=== PATIENT | male | born 1960 | race Caucasian/White ===

== ENCOUNTER 2018-11-30 10:13 | Emergency (ER) | payer SELFPAY ==
[2018-11-30 10:57] LABS: #Basophils 0.1 thou/uL (0.0-0.2); #Eosinphils 0.1 thou/uL (0.0-0.7); #Lymphocytes 1.8 thou/uL (1.20-3.40); #Neutrophils 6.8 thou/uL (1.40-6.50); %Basophils 0.7 % (0.0-1.0); %Eosinophils 1.3 % (0.0-10.0); %Lymphocytes 18.6 % (21.0-51.0); %Monocytes 10.6 % (0.0-10.0); %Neutrophils 68.9 % (42.0-75.0); Mean Corpuscular HGB CONC 32.9 g/dL (32.0-36.0); Mean Corpuscular Hemoglobin 28.4 pg (27.0-31.0); Mean Corpuscular Volume 86.3 fL (78.0-98.0); Mean Platelet Volume 6.6 fL (7.4-10.4); Platelet Count 413 thou/uL (130-400); RBC Distribution Width 12.5 % (11.5-14.5); Red Blood Cell (RBC) Count 4.58 mill/uL (4.70-6.10); White Blood Cell (WBC) Count 9.9 thou/uL (4.8-10.8)
[2018-11-30 11:21] LABS: ALT (SGPT) 18 U/L (8-55); AST (SGOT) 15 U/L (5-34); Alkaline Phosphatase 71 U/L (40-150); Anion Gap 13 mmol/L (10-20); BUN (Urea Nitrogen) 18 mg/dL (8.4-25.7); Bilirubin, Total 0.6 mg/dL (0.2-1.2); Calc. Creatinine Clearance 0 mL/min (70-130); Carbon Dioxide 24 mmol/L (22-29); Chloride 104 mmol/L (98-107); Estimated GFR-MDRD 57; Globulin 2.6 g/dL (2.4-3.5); Glucose 103 mg/dL (70-105); Potassium 5.1 mmol/L (3.5-5.1); Protein, Total 6.6 g/dL (6.0-8.3); Sodium 136 mmol/L (136-145)
== END 2018-11-30 11:07 | disposition home or self-care (01) ==
LOC: ERS 10:13
DX: R05 Cough (principal); J43.9 Emphysema, unspecified; F31.9 Bipolar disorder, unspecified; F20.9 Schizophrenia, unspecified
CPT/HCPCS: 36415; 80053; 84484; 85025; 93005

== ENCOUNTER 2020-12-25 11:53 | Outpatient (CLI) | payer BC ==
[2020-12-25 14:15] LABS: #Basophils 0.1 10x3/uL (0.0-0.2); #Eosinphils 0.3 10x3/uL (0.0-0.5); #Monocytes 0.6 10x3/uL (0.0-1.1); %Eosinophils 5.1 % (0.0-6.0); %Lymphocytes 20.2 % (18.0-47.0); %Monocytes 9.4 % (0.0-10.0); %Neutrophils 64.1 % (40.0-75.0); Hemoglobin 14.3 g/dL (13.5-17.5); Mean Corpuscular HGB CONC 31.7 g/dL (32.0-36.0); Mean Corpuscular Hemoglobin 26.8 pg (27.0-33.0); Mean Corpuscular Volume 84.6 fl (81.2-95.1); Mean Platelet Volume 10.2 fl (7.4-10.4); Platelet Count 305 10x3/uL (150-450); RBC Distribution Width 14.7 % (11.5-14.5); Red Blood Cell (RBC) Count 5.33 10x6/uL (4.32-5.72); White Blood Cell (WBC) Count 6.3 10x3/uL (3.5-10.5)
[2020-12-25 14:51] LABS: Anion Gap 15 mmol/L (10-20); BUN (Urea Nitrogen) 15 mg/dL (8.4-25.7); Calc. Creatinine Clearance 0 mL/min (70-130); Calcium 9.4 mg/dL (7.8-10.44); Carbon Dioxide 24 mmol/L (22-29); Chloride 106 mmol/L (98-107); Glucose 63 mg/dL (70-105); Potassium 4.9 mmol/L (3.5-5.1); Sodium 140 mmol/L (136-145)
[2020-12-26 21:36] LABS: SARS-CoV-2 PCR by NAA Not Detected (NotDetected)
== END 2020-12-25 11:54 | disposition home or self-care (01) ==
LOC: LABBT 11:53
PROVIDERS: ATTEND Specialist
DX: Z01.818 Encounter for other preprocedural examination (principal); K40.90 Unilateral inguinal hernia, without obstruction or gangrene, not specified as recurrent; Z20.822 Contact with and (suspected) exposure to COVID-19
CPT/HCPCS: 80048; 85025; 93005; 93010; U0003; U0005

== ENCOUNTER 2020-12-30 06:13 | Day surgery (SDC) | payer BC ==
[2020-12-25 15:19] VITALS: BMI 22.0
[2020-12-30] MEDS ORDERED: Fentanyl 100 MCG/2 ML VIAL ONE (06:40)
[2020-12-30] MEDS ORDERED: Lidocaine 2% Jelly 5 ML TUBE ONE (06:40)
[2020-12-30] MEDS ORDERED: Bupivacaine 0.25% HCL 30 ML VIAL ONE (06:41)
[2020-12-30] MEDS ORDERED: Lidocaine 1% w/Epinephrine 1:100K 30 ML VIAL ONE (06:41)
[2020-12-30] MEDS ORDERED: Ketorolac Tromethamine 30 MG/ML VIAL ONE (06:44)
[2020-12-30] MEDS ORDERED: Acetaminophen 500 MG TAB ONE (06:44)
[2020-12-30] MEDS ORDERED: Midazolam HCl 2 mg/2 ml Vial ONE (07:34)
[2020-12-30] MEDS ORDERED: PHENYLEPHRINE-NS 100 MCG/ML 10 ML SYRINGE ONE (07:47)
[2020-12-30] MEDS ORDERED: Dexamethasone 20 MG/5 ML VIAL ONE (07:47)
[2020-12-30] MEDS ORDERED: Ondansetron PF 4 MG/2 ML Vial ONE (07:47)
[2020-12-30] MEDS ORDERED: Glycopyrrolate 0.2 MG/ML 5 ML SYRINGE ONE (07:47)
[2020-12-30] MEDS ORDERED: Rocuronium Bromide 10 MG/ML (10ML VIAL) ONE (07:47)
[2020-12-30] MEDS ORDERED: PROPOFOL 200 MG/20 ML VIAL ONE (07:47)
[2020-12-30] MEDS ORDERED: Lidocaine 1% PF 5 ML VIAL ONE (07:47)
[2020-12-30] MEDS ORDERED: ePHEDrine 50 MG/ML VIAL ONE (07:47)
[2020-12-30] MEDS ORDERED: HYDROcodone/Acetaminophen 5/325 mg Tablet ONE (10:02)
== END 2020-12-30 11:45 | disposition home or self-care (01) ==
LOC: SDC 06:13
PROVIDERS: ATTEND Specialist
PROC: 0YU64JZ Supplement Left Inguinal Region with Synthetic Substitute, Percutaneous Endoscopic Approach (ICD-10-PCS; principal; 2020-12-30)
DX: K40.90 Unilateral inguinal hernia, without obstruction or gangrene, not specified as recurrent (principal); I12.9 Hypertensive chronic kidney disease with stage 1 through stage 4 chronic kidney disease, or unspecified chronic kidney disease; N18.32 Chronic kidney disease, stage 3b; E03.9 Hypothyroidism, unspecified; F17.200 Nicotine dependence, unspecified, uncomplicated; Z86.73 Personal history of transient ischemic attack (TIA), and cerebral infarction without residual deficits; Z79.899 Other long term (current) drug therapy; Z88.5 Allergy status to narcotic agent
CPT/HCPCS: C1781; J0690; J1100; J1885; J2250; J2405; J2704; J3010; J3490; S0020

== ENCOUNTER 2021-05-25 14:20 | Inpatient (IN) | payer BC ==
[2021-05-25 15:08] LABS: #Basophils 0.1 thou/uL (0.0-0.2); #Eosinphils 0.2 thou/uL (0.0-0.7); #Lymphocytes 1.3 thou/uL (1.20-3.40); #Monocytes 0.6 thou/uL (0.11-0.59); #Neutrophils 4.2 thou/uL (1.40-6.50); %Eosinophils 3.3 % (0.0-10.0); %Lymphocytes 20.7 % (21.0-51.0); %Monocytes 9.7 % (0.0-10.0); %Neutrophils 65.2 % (42.0-75.0); Hemoglobin 14.1 g/dL (14.0-18.0); Mean Corpuscular HGB CONC 31.5 g/dL (32.0-36.0); Mean Corpuscular Hemoglobin 26.9 pg (27.0-31.0); Mean Corpuscular Volume 85.4 fL (78.0-98.0); Mean Platelet Volume 6.6 fL (7.4-10.4); Platelet Count 341 thou/uL (130-400); RBC Distribution Width 13.6 % (11.5-14.5); Red Blood Cell (RBC) Count 5.24 mill/uL (4.70-6.10); White Blood Cell (WBC) Count 6.4 thou/uL (4.8-10.8)
[2021-05-25 15:29] LABS: Acetaminophen Less than 6.0 mcg/mL (10.0-30.0); Alcohol Less than 10 mg/dL (Less than 10); Salicylate Less than 8.0 mg/dL (15.0-30.0)
[2021-05-25 15:30] LABS: ALT (SGPT) 13 U/L (8-55); AST (SGOT) 14 U/L (5-34); Albumin 3.7 g/dL (3.5-5.0); Alkaline Phosphatase 63 U/L (40-110); Anion Gap 13 mmol/L (10-20); BUN (Urea Nitrogen) 16 mg/dL (8.4-25.7); Bilirubin, Total 0.6 mg/dL (0.2-1.2); Calc. Creatinine Clearance 0 mL/min (70-130); Calcium 9.7 mg/dL (7.8-10.44); Carbon Dioxide 27 mmol/L (22-29); Chloride 102 mmol/L (98-107); Glucose 62 mg/dL (70-105); Potassium 4.1 mmol/L (3.5-5.1); Protein, Total 6.7 g/dL (6.0-8.3); Sodium 138 mmol/L (136-145)
[2021-05-25 16:00] LABS: Hemoglobin A1c 5.7 % (4.0-6.0)
[2021-05-25 16:07] LABS: INR-International Normal Ratio 0.9; PTT 32.2 sec (22.9-36.1); Prothrombin Time 12.2 sec (12.0-14.7)
[2021-05-25 16:43] LABS: Bilirubin Negative (Negative); Blood, Urine Negative (Negative); Clarity Clear (Clear); Glucose, Urine (Dipstick) Normal (Negative); Ketone, Urine Negative (Negative); Leukocyte Negative Leu/uL (Negative); Nitrite Negative (Negative); Protein, Urine (Dipstick) Negative (Neg-Trace); Urobilinogen Normal mg/dL (Less than 2)
[2021-05-25 16:54] LABS: Amphetamine Detected (NotDetected); Barbiturates Screen Not Detected (NotDetected); Benzodiazepine Screen Not Detected (NotDetected); Cocaine Metabolite Screen Not Detected (NotDetected); Methadone Not Detected (NotDetected); Methamphetamine Detected (NotDetected); Opiate Screen Not Detected (NotDetected); Oxycodone Screen Not Detected (NotDetected); Phencyclidine (PCP) Not Detected (NotDetected); THC/Cannabinoid Screen Not Detected (NotDetected); Tricyclic Screen Not Detected (NotDetected)
[2021-05-25] MEDS ORDERED: Aspirin 325 MG TAB ONE (18:05)
[2021-05-25 19:04] LABS: Troponin I Less than 0.010 ng/mL (< 0.028)
[2021-05-25 22:35] LABS: Troponin I Less than 0.010 ng/mL (< 0.028)
[2021-05-25 22:56] VITALS: BMI 21.4
[2021-05-25] MEDS ORDERED: Ondansetron ODT 4 MG TAB PO PRN (22:56)
[2021-05-25] MEDS ORDERED: Acetaminophen 325 MG TAB PO PRN (22:56)
[2021-05-25] MEDS ORDERED: hydrALAZINE 20 MG/ML VIAL SLOW IVP PRN (22:56)
[2021-05-25] MEDS ORDERED: Acetaminophen 650 MG Suppository PR PRN (22:56)
[2021-05-25] MEDS ORDERED: Ondansetron PF 4 MG/2 ML Vial IVP PRN (22:56)
[2021-05-26] MEDS: Dextrose 10% in Water 1,000 ML IV SCH ×3 (02:30→22:08)
[2021-05-26 05:08] LABS: #Basophils 0.1 thou/uL (0.0-0.2); #Eosinphils 0.4 thou/uL (0.0-0.7); #Lymphocytes 2.5 thou/uL (1.20-3.40); #Monocytes 0.8 thou/uL (0.11-0.59); #Neutrophils 3.6 thou/uL (1.40-6.50); %Basophils 1.6 % (0.0-1.0); %Lymphocytes 33.7 % (21.0-51.0); %Monocytes 10.3 % (0.0-10.0); %Neutrophils 49.4 % (42.0-75.0); Hemoglobin 14.1 g/dL (14.0-18.0); Mean Corpuscular HGB CONC 32.5 g/dL (32.0-36.0); Mean Corpuscular Hemoglobin 27.7 pg (27.0-31.0); Mean Corpuscular Volume 85.2 fL (78.0-98.0); Mean Platelet Volume 7.2 fL (7.4-10.4); Platelet Count 338 thou/uL (130-400); RBC Distribution Width 13.6 % (11.5-14.5); Red Blood Cell (RBC) Count 5.08 mill/uL (4.70-6.10); White Blood Cell (WBC) Count 7.3 thou/uL (4.8-10.8)
[2021-05-26 05:29] LABS: Anion Gap 11 mmol/L (10-20); BUN (Urea Nitrogen) 17 mg/dL (8.4-25.7); Calc. Creatinine Clearance 64 mL/min (70-130); Calcium 9.1 mg/dL (7.8-10.44); Carbon Dioxide 26 mmol/L (22-29); Cardiac Risk 5.1 (Less than 4.5); Chloride 103 mmol/L (98-107); Cholesterol 216 mg/dl (< 200 Desired); Glucose 92 mg/dL (70-105); HDL Cholesterol 42 mg/dL (>60 Neg Risk); LDL Cholesterol, Calculated 142 mg/dL; Potassium 3.9 mmol/L (3.5-5.1); Sodium 136 mmol/L (136-145); Triglycerides 161 mg/dL (Less than 150)
[2021-05-26] MEDS: Enoxaparin Sodium 40 MG/0.4 ML SYRINGE SC SCH (10:57)
[2021-05-26 11:58] LABS: SARS-CoV-2 PCR by NAA Not Detected (NotDetected)
[2021-05-26] MEDS: Aspirin 81 mg Enteric Coated Tablet PO SCH (19:49)
[2021-05-26] MEDS: Atorvastatin Calcium 40 MG TAB PO SCH (22:01)
[2021-05-27] MEDS: Enoxaparin Sodium 40 MG/0.4 ML SYRINGE SC SCH (09:12)
[2021-05-27] MEDS: Aspirin 81 mg Enteric Coated Tablet PO SCH (09:12)
[2021-05-27] MEDS ORDERED: Carvedilol 6.25 MG TAB PO SCH ×3 (09:45→17:00)
[2021-05-27] MEDS ORDERED: Amlodipine 5 MG TAB PO SCH ×2 (13:30→16:15)
[2021-05-27] MEDS: Carvedilol 6.25 MG TAB PO SCH (17:33)
[2021-05-27] MEDS ORDERED: hydrALAZINE 25 MG TAB PO PRN (17:35)
[2021-05-27] MEDS: Atorvastatin Calcium 40 MG TAB PO SCH (21:17)
[2021-05-28] MEDS ORDERED: Amlodipine 5 MG TAB PO SCH (09:00)
[2021-05-28] MEDS: Aspirin 81 mg Enteric Coated Tablet PO SCH (09:55)
[2021-05-28] MEDS: Carvedilol 6.25 MG TAB PO SCH (09:56)
[2021-05-28] MEDS: Enoxaparin Sodium 40 MG/0.4 ML SYRINGE SC SCH (09:57)
[2021-05-28 19:33] VITALS: BP 158/89; TEMP 98.2
== END 2021-05-28 12:30 | disposition home or self-care (01) | DRG 65 ==
LOC: ERS 14:20 → ERHOLD 17:59 → 2NO 22:23 → OBSVTOIN 05-26 16:35
PROVIDERS: ADMIT Internal Medicine; ATTEND Internal Medicine
DX: I63.9 Cerebral infarction, unspecified (principal); R29.708 NIHSS score 8; Z20.822 Contact with and (suspected) exposure to COVID-19; I16.1 Hypertensive emergency; G81.94 Hemiplegia, unspecified affecting left nondominant side; G93.49 Other encephalopathy; F17.210 Nicotine dependence, cigarettes, uncomplicated; J43.9 Emphysema, unspecified; F15.10 Other stimulant abuse, uncomplicated; F14.10 Cocaine abuse, uncomplicated; I10 Essential (primary) hypertension; E78.5 Hyperlipidemia, unspecified; Z86.73 Personal history of transient ischemic attack (TIA), and cerebral infarction without residual deficits; Z88.5 Allergy status to narcotic agent; Z79.899 Other long term (current) drug therapy; Z79.890 Hormone replacement therapy
CPT/HCPCS: 36415; 36416; 70450; 70496; 70498; 70551; 71045; 72125; 72170; 74230; 80048; 80053; 80061; 80306; 80307; 81003; 82140; 82550; 83036; 84443; 84484; 85025; 85610; 85730; 93005; 93306; 94760; 95712; 95819; 95957; 96372; G0378; J1650; U0003; U0005

== ENCOUNTER 2021-09-20 13:42 | Emergency (ER) | payer BC ==
[~2021-09-20 13:42] MED LIST: Iopamidol-370 76% 500 ML 1 ML ONE
[2021-09-20 15:14] LABS: #Basophils 0.1 thou/uL (0.0-0.2); #Eosinphils 0.2 thou/uL (0.0-0.7); #Lymphocytes 1.7 thou/uL (1.20-3.40); #Monocytes 0.8 thou/uL (0.11-0.59); #Neutrophils 5.1 thou/uL (1.40-6.50); %Basophils 1.6 % (0.0-1.0); %Eosinophils 2.3 % (0.0-10.0); %Lymphocytes 21.9 % (21.0-51.0); %Monocytes 9.9 % (0.0-10.0); %Neutrophils 64.3 % (42.0-75.0); Hemoglobin 14.6 g/dL (14.0-18.0); Mean Corpuscular HGB CONC 32.6 g/dL (32.0-36.0); Mean Platelet Volume 7.6 fL (7.4-10.4); Platelet Count 300 thou/uL (130-400); RBC Distribution Width 13.1 % (11.5-14.5); Red Blood Cell (RBC) Count 5.05 mill/uL (4.70-6.10); White Blood Cell (WBC) Count 7.9 thou/uL (4.8-10.8)
[2021-09-20 15:27] LABS: ALT (SGPT) 8 U/L (8-55); AST (SGOT) 12 U/L (5-34); Alkaline Phosphatase 74 U/L (40-110); Anion Gap 14 mmol/L (10-20); BUN (Urea Nitrogen) 14 mg/dL (8.4-25.7); Bilirubin, Total 0.6 mg/dL (0.2-1.2); Calc. Creatinine Clearance 0 mL/min (70-130); Calcium 9.4 mg/dL (7.8-10.44); Carbon Dioxide 28 mmol/L (22-29); Chloride 102 mmol/L (98-107); Globulin 3.4 g/dL (2.4-3.5); Glucose 71 mg/dL (70-105); Lipase 41 U/L (8-78); Potassium 4.4 mmol/L (3.5-5.1); Protein, Total 7.4 g/dL (6.0-8.3); Sodium 140 mmol/L (136-145)
[2021-09-20] MEDS ORDERED: Ondansetron PF 4 MG/2 ML Vial ONE (15:44)
[2021-09-20] MEDS ORDERED: Mag-Al 1200 mg/1200 mg/30 ML UDCUP ONE (15:44)
[2021-09-20] MEDS ORDERED: Pantoprazole 40 MG VIAL ONE (15:44)
[2021-09-20] MEDS ORDERED: Lidocaine Viscous Sol 2% 15 ml UD Cup ONE (15:44)
[2021-09-20 17:30] LABS: Bilirubin Negative (Negative); Blood, Urine Negative (Negative); Clarity Clear (Clear); Glucose, Urine (Dipstick) 70 mg/dL (Negative); Ketone, Urine Negative (Negative); Leukocyte Negative Leu/uL (Negative); Nitrite Negative (Negative); Protein, Urine (Dipstick) Negative (Neg-Trace); Urobilinogen Normal mg/dL (Less than 2); pH, Urine 6.5 (5.0-9.0)
[2021-09-20 17:31] LABS: Specific Gravity, Urine 1.053 (1.002-1.036)
== END 2021-09-20 18:19 | disposition home or self-care (01) ==
LOC: ERS 13:42
DX: K57.92 Diverticulitis of intestine, part unspecified, without perforation or abscess without bleeding (principal); K59.00 Constipation, unspecified; I10 Essential (primary) hypertension; J43.9 Emphysema, unspecified; Z86.73 Personal history of transient ischemic attack (TIA), and cerebral infarction without residual deficits; F17.210 Nicotine dependence, cigarettes, uncomplicated
CPT/HCPCS: 36415; 74177; 80053; 81003; 83690; 84484; 85025; 93005; 96374; 96375; C9113; J2405; Q9967